=== PATIENT | female | born 1960 | race Caucasian/White ===

== ENCOUNTER 2017-11-23 18:42 | Emergency (ER) | payer BC ==
--- NOTE | 2017-11-23 20:27 | ED ---
Rudolph Ludwig Sixian, scribed for Ariel Fierro MD on 11/23/17 at 1931 . Back Pain - HPI Summary HPI Summary: This patient is a 57 year old F BIBA to ED with a chief complaint of back pain since last 6 days ago. The CC is described as radiating to her right leg and both her feet. The patient rates the pain 6/10 in severity. Symptoms aggravated and alleviated by nothing. Patient reports chills, dry mouth, trouble ambulating , intermittent numbness, nausea, and decreased appetite. Patient denies trouble urinating, vomiting. 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 - History of Current Complaint Chief Complaint: EDBackInjuryPain Stated Complaint: BACK PAIN Time Seen by Provider: 11/23/17 19:14 Hx Obtained From: Family/It Technical Support Specialist - Daughter Onset/Duration: Gradual Onset, Lasting Days, Still Present Onset/Duration: Started Days Ago, Still Present Timing: Constant, Lasting Days Back Pain Location: Radiates To - right leg, both feet Severity Currently: Moderate Pain Intensity: 6 Pain Scale Used: 0-10 Numeric Aggravating Symptom(s): Nothing Alleviating Symptom(s): Nothing Associated Signs And Symptoms: Positive: Other - Patient reports chills, dry mouth, trouble ambulating, intermittent numbness, nausea, and decreased appetite. Patient denies trouble urinating, vomitting. - Allergies/Home Medications Home Medications: Home Medications NK [No Home Medications Reported] 11/23/17 [History Confirmed 11/23/17] PMH/Surg Hx/FS Hx/Imm Hx Endocrine/Hematology History: Denies: Hx Diabetes Opthamlomology History: Denies: Hx Legally Blind Infectious Disease History: No Infectious Disease History: Denies: Traveled Outside the [place] in Last 30 Days - Family History Known Family History: Negative: Hypertension, Diabetes - Social History Alcohol Use: None Substance Use Type: Reports: None Smoking Status (MU): Never Smoked Tobacco Review of Systems Positive: Chills, Other - decreased appetite Positive: Other - dry mouth Positive: Nausea. Negative: Vomiting Positive: Decreased ROM, Other - trouble ambulating, intermittent numbness, back pain Positive: Numbness - intermittent All Other Systems Reviewed And Are Negative: Yes Physical Exam - Summary Physical Exam Summary: Appearance: Well-appearing, Well-nourished, lying in bed Skin: Warm, dry, no obvious rash Eyes: sclera anicteric, no conjunctiva pallor ENT: mucous membranes moist, pharynx appears normal Neck: Supple, nontender Respiratory: Clear to auscultation, no signs of respiratory distress Cardiovascular: Normal S1, S2. No murmurs. Normal distal pulses in tibial and radial bilaterally. Abdomen: Soft, nontender, normal active bowel sounds present Musculoskeletal: Normal, Sensation/Strength/ROM Intact, No Babinski, Reflexes good Neurological: A&Ox3, awake and alert, mentation is normal, speech is fluent and appropriate Psychiatric: affect is normal, does not appear anxious or depressed Triage Information Reviewed: Yes Vital Signs On Initial Exam: Initial Vitals Temp Pulse Resp BP Pulse Ox 99.3 F 68 18 107/55 97 11/23/17 18:49 11/23/17 18:49 11/23/17 18:49 11/23/17 18:49 11/23/17 18:49 Vital Signs Reviewed: Yes Diagnostics - Vital Signs Vital Signs Temp Pulse Resp BP Pulse Ox 11/23/17 18:49 99.3 F 68 18 107/55 97 - Laboratory Lab Statement: Any lab studies that have been ordered have been reviewed, and results considered in the medical decision making process. Back Pain Course/Dx - Course Course Of Treatment: 57 y/o generally healthy woman with typical symptoms of sciatica. There are no hard neurologic findings to suggest cord problem or severe nerve impingement. Screening LS spine series obtained due to pt's age to r/o lytic lesions, spontaneous compression fx; that appears unremarkable. Pt to be discharged on NSAID therapy, f/u with PCP if no better over next few weeks. - Diagnoses Differential Diagnosis/HQI/PQRI: Negative: Cauda Equina Syndrome, Compressive Cord Syndrome, Fracture, Herniated Disc, Osteomyelitis Provider Diagnoses: Sciatica Discharge - Sign-Out/Discharge Documenting (check all that apply): Discharge/Admit/Transfer - Discharge Plan Condition: Good Disposition: HOME Patient Education Materials: Sciatica (ED) Referrals: Loli Serrato MD [Primary Care Provider] - Additional Instructions: RETURN TO THE EMERGENCY DEPARTMENT FOR CHANGING OR WORSENING SYMPTOMS. - Billing Disposition and Condition Condition: GOOD Disposition: HOME The documentation as recorded by the Rudolph cutler Sixian accurately reflects the service I personally performed and the decisions made by me, Ariel Fierro MD.
--- NOTE | 2017-11-23 20:29 | RAD ---
INDICATION: Back pain COMPARISON: None TECHNIQUE: AP and lateral views were obtained . FINDINGS: Bones: There are no acute bony findings. There are minor arthritic findings consisting of facet arthropathy at L5-S1. Alignment: Normal Disc spaces: The disc spaces are well-maintained Soft tissues: There are no soft tissue abnormalities. IMPRESSION: FACET ARTHROPATHY L5-S1, OTHERWISE NEGATIVE.
[2017-11-23 20:43] VITALS: BP 100/60
== END 2017-11-23 20:45 | disposition home or self-care (01) ==
LOC: ED 18:42
DX: M54.30 Sciatica, unspecified side (principal); M12.9 Arthropathy, unspecified
CPT/HCPCS: 72100; 99282